=== PATIENT | male | born 1970 | race Two or more races ===

== ENCOUNTER 2017-05-31 14:55 | Emergency (ER) | payer MEDICAID ==
[~2017-05-31] VITALS: Ht 170.2 cm; Wt 81.6 kg
[2017-05-31 16:48] VITALS: BP 117/71
== END 2017-05-31 17:50 | disposition home or self-care (01) ==
LOC: ER 14:59
DX: M10.062 Idiopathic gout, left knee (principal); G89.29 Other chronic pain

== ENCOUNTER 2019-05-07 16:24 | Emergency (ER) | payer BC ==
[~2019-05-07] VITALS: Ht 172.7 cm; Wt 81.6 kg
[2019-05-07 20:55] VITALS: BP 116/72
== END 2019-05-07 20:59 | disposition home or self-care (01) ==
LOC: ER 16:24
DX: R10.12 Left upper quadrant pain (principal); F12.10 Cannabis abuse, uncomplicated
CPT/HCPCS: 74176

== ENCOUNTER 2021-01-04 15:05 | Emergency (ER) | payer BC ==
[~2021-01-04] VITALS: Ht 172.7 cm; Wt 81.6 kg
[2021-01-04 15:48] VITALS: BP 150/84
== END 2021-01-04 16:53 | disposition home or self-care (01) ==
LOC: ER 15:05
DX: S63.591A Other specified sprain of right wrist, initial encounter (principal); M19.031 Primary osteoarthritis, right wrist; X58.XXXA Exposure to other specified factors, initial encounter; Y93.89 Activity, other specified; Y92.89 Other specified places as the place of occurrence of the external cause; Y99.8 Other external cause status
CPT/HCPCS: 73110